=== PATIENT | male | born 1985 | race Hispanic/Latino ===

== ENCOUNTER 2017-02-20 12:24 | Emergency (ER) | payer BC ==
[2017-02-20] MEDS ORDERED: Sodium Chloride 0.9% 1,000 ML IV STA (12:37)
[2017-02-20 12:56] LABS: BASO % 0.5 % (0.0-2.0); EOS # 0.2 K/uL (0.0-0.7); EOS % 1.7 % (0.0-4.0); HEMATOCRIT 45.1 % (35.0-51.0); LYMPH # 1.2 K/uL (1.0-4.3); LYMPH % 12.5 % (20.0-40.0); MEAN CELL VOLUME 86.3 fl (80.0-94.0); MEAN CORPUSCULAR HGB CONC 33.6 g/dL (33.0-37.0); MONO # 0.6 K/uL (0.0-0.8); MONO % 5.7 % (0.0-10.0); NEUT # 7.9 K/uL (1.8-7.0); NEUT % 79.6 % (50.0-75.0); NRBC % 0.1 % (0.0-0.0); RED CELL DISTRIBUTION WIDTH 13.6 % (11.5-14.5); WHITE BLOOD COUNT 9.9 K/uL (4.8-10.8)
--- NOTE | 2017-02-20 12:59 | ED PDOC ---
HPI: Seizure Time Seen by Provider: 02/20/17 12:33 Chief Complaint (Nursing): Seizure Chief Complaint (Provider): Seizure History Per: Patient Recent Seizure Activity Began: Just Before Arrival Additional Complaint(s): 22 y/o male was brought to the ED by EMS after witnessing seizure in gym today. Patient has no recollection of event, however states missed does of Topamax this morning. Witness not available to give any pertinent information about the episode. Patient states that he fell to floor with injury to right side of face no complaints now. Denies any further medical complaints. Past Medical History Reviewed: Historical Data, Nursing Documentation, Vital Signs Vital Signs: Last Vital Signs Temp 98.3 F 02/20/17 12:28 Pulse 69 02/20/17 14:19 Resp 16 02/20/17 14:19 BP 128/75 02/20/17 14:19 Pulse Ox 98 02/20/17 14:58 - Medical History PMH: Seizures - Surgical History Other surgeries: Brain Tumor Removal - Family History Family History: States: Unknown Family Hx - Social History Current smoker - smoking cessation education provided: No Alcohol: Social Drugs: Denies - Home Medications Home Medications: Ambulatory Orders Medication Instructions Recorded Topiramate [Topamax] 1 tab PO BID 02/20/17 - Allergies Allergies/Adverse Reactions: Allergies Allergy/AdvReac Type Severity Reaction Status Date / Time No Known Allergies Allergy Verified 02/20/17 12:26 Review of Systems ROS Statement: Except As Marked, All Systems Reviewed And Found Negative (As per HPI, otherwise negative) Musculoskeletal: Positive for: Other (Patient fell on the floor with injury to right side of the face) Neurological: Positive for: Seizures Physical Exam - Reviewed Nursing Documentation Reviewed: Yes Vital Signs Reviewed: Yes - Physical Exam Appears: Positive for: Non-toxic Head Exam: Positive for: ATRAUMATIC, NORMOCEPHALIC Skin: Positive for: Normal Color, Warm, Dry, Rash (Right sided hair orbital and maxillary abrasions) Cardiovascular/Chest: Positive for: Regular Rate, Rhythm. Negative for: Murmur Respiratory: Positive for: Normal Breath Sounds. Negative for: Accessory Muscle Use, Respiratory Distress Gastrointestinal/Abdominal: Negative for: Tenderness Back: Negative for: L CVA Tenderness, R CVA Tenderness, Vertebral Tenderness Extremity: Negative for: Deformity Neurologic/Psych: Positive for: Alert, Oriented (x3) - Laboratory Results Result Diagrams: 02/20/17 12:45 02/20/17 12:45 - ECG O2 Sat by Pulse Oximetry: 98 (RA) Pulse Ox Interpretation: Normal Medical Decision Making Medical Decision Making: Time: 12:37 Plan: Head w/o contrast EKG CMP CBC w/ diff Sodium chloride 1L IV Topamax 100mg PO Reevalaution Time: 13:[address] FINDINGS: HEMORRHAGE: No intracranial hemorrhage. BRAIN: No mass effect or edema. No atrophy or chronic microvascular ischemic changes. Focus of encephalomalacia along the right lateral frontal lobe. VENTRICLES: Unremarkable. No hydrocephalus. CALVARIUM: Unremarkable. PARANASAL SINUSES: Unremarkable as visualized. No significant inflammatory changes. MASTOID AIR CELLS: Unremarkable as visualized. No inflammatory changes. OTHER FINDINGS: None. IMPRESSION: No acute hemorrhage. Scribe Attestation: Documented by Marissa Quick acting as a scribe for Luke Cortes MD. Scribe Attestation: All medical record entries made by the Scribe were at my direction and personally dictated by me. I have reviewed the chart and agree that the record accurately reflects my personal performance of the history, physical exam, medical decision making, and the department course for this patient. I have also personally directed, reviewed, and agree with the discharge instructions and disposition. Disposition - Clinical Impression Clinical Impression: Seizure disorder - Patient ED Disposition Is Patient to be Admitted: No - Disposition Disposition: Routine/Home Disposition Time: 15:39 Condition: FAIR Instructions: Recurrent Seizures in Adults (ED) Forms: [employer] ([place])
[2017-02-20 13:06] LABS: ALB/GLOB RATIO 1.3 (1.0-2.1); ALKALINE PHOSPHATASE 43 U/L (38-126); ALT/SGPT 57 U/L (21-72); AST/SGOT 63 U/L (17-59); BILIRUBIN,TOTAL 0.4 mg/dl (0.2-1.3); BLOOD UREA NITROGEN 14 mg/dl (9-20); CARBON DIOXIDE 16 mmol/L (22-30); CHLORIDE 106 mmol/L (98-107); GFR AFRICAN-AMERICAN > 60; GLUCOSE,RANDOM 136 mg/dL (75-110); POTASSIUM 4.2 MMOL/L (3.6-5.0); SODIUM 146 mmol/l (132-148); TOTAL PROTEIN 8.6 G/DL (6.3-8.2)
--- NOTE | 2017-02-20 13:36 | CT ---
PROCEDURE: CT HEAD WITHOUT CONTRAST. HISTORY: r/o bleed COMPARISON: None available. TECHNIQUE: Axial computed tomography images were obtained through the head/brain without intravenous contrast. Radiation dose: Total exam DLP = mGy-cm. This CT exam was performed using one or more of the following dose reduction techniques: Automated exposure control, adjustment of the mA and/or kV according to patient size, and/or use of iterative reconstruction technique. FINDINGS: HEMORRHAGE: No intracranial hemorrhage. BRAIN: No mass effect or edema. No atrophy or chronic microvascular ischemic changes. Focus of encephalomalacia along the right lateral frontal lobe. VENTRICLES: Unremarkable. No hydrocephalus. CALVARIUM: Unremarkable. PARANASAL SINUSES: Unremarkable as visualized. No significant inflammatory changes. MASTOID AIR CELLS: Unremarkable as visualized. No inflammatory changes. OTHER FINDINGS: None. IMPRESSION: No acute hemorrhage.
--- NOTE | 2017-02-20 14:04 | CARD ---
APPROVED REPORT EKG Measurement Heart [id number] <Conclusion> Normal sinus rhythm Normal ECG
[2017-02-20 14:20] VITALS: RESP 16
[2017-02-20 15:54] VITALS: BP 137/72; PULSE 64; TEMP 97.7; O2SAT 99
== END 2017-02-20 16:15 | disposition home or self-care (01) ==
LOC: H.ER 12:24
DX: G40.909 Epilepsy, unspecified, not intractable, without status epilepticus (principal); S09.93XA Unspecified injury of face, initial encounter; W19.XXXS Unspecified fall, sequela; Y92.89 Other specified places as the place of occurrence of the external cause
CPT/HCPCS: 70450; 80053; 82948; 85025; 93005; 96360; 96361; 99285; J7040